=== PATIENT | male | born 1970 | race Caucasian/White ===

== ENCOUNTER → 2016-08-10 | Outpatient (CLI) | payer OTHER | LOC: HEART 5 13:27 | DX: I51.9 Heart disease, unspecified (principal) ==

== ENCOUNTER 2020-11-21 18:25 | Emergency (ER) | payer OTHER ==
[~2020-11-21 18:25] MED LIST: KEFLEX500 MG PO; TYLENOL325 MG PO
[2020-11-21] MEDS ORDERED: NORFLEX 100 MG100 MG PO (19:29)
[2020-11-21] MEDS ORDERED: Voltaren Gel 1 % TOP (19:29)
== END 2020-11-21 20:05 | disposition home or self-care (01) ==
LOC: ER1 18:25
DX: S39.012A Strain of muscle, fascia and tendon of lower back, initial encounter (principal); S90.32XA Contusion of left foot, initial encounter; S80.12XA Contusion of left lower leg, initial encounter; I10 Essential (primary) hypertension; W17.89XA Other fall from one level to another, initial encounter; Y92.009 Unspecified place in unspecified non-institutional (private) residence as the place of occurrence of the external cause
CPT/HCPCS: 72100; 73552; 73590; 73630; 99283